=== PATIENT | male | born 1985 | race Two or more races ===

== ENCOUNTER → 2024-04-15 | Emergency (ER) | payer MEDICAID ==
[~2024-04-15] VITALS: Ht 177.8 cm; Wt 90.9 kg
[2024-04-15 10:55] VITALS: BP 110/72; PULSE 62; RESP 18; TEMP 98.2
[2024-04-15] MEDS: BACITRACIN 0.9 GM PACKET OINTMENT TP ONE (11:22)
== END | disposition home or self-care (01) ==
LOC: EMS 10:55
DX: S61.511D Laceration without foreign body of right wrist, subsequent encounter (principal); X58.XXXD Exposure to other specified factors, subsequent encounter
CPT/HCPCS: 99282; Z7502; Z7610